=== PATIENT | female | born 1975 | race Hispanic/Latino ===

== ENCOUNTER 2020-09-11 07:05 | Day surgery (SDC) | payer OTHER ==
[2020-09-04 10:28] LABS: BASOPHILS % (AUTO) 0.7 % (0.0-5.0); EOSINOPHILS % (AUTO) 2.3 % (0.0-8.0); HEMATOCRIT 36.5 % (36-48); LYMPHOCYTES % (AUTO) 39.2 % (21.0-51.0); MEAN CORPUSCULAR HEMOGLOBIN 24.9 pg (27.0-33.0); MEAN CORPUSCULAR HGB CONC 30.4 g/dL (32.0-36.0); MEAN CORPUSCULAR VOLUME 81.8 fL (79-99); MONOCYTES % (AUTO) 6.9 % (3.0-13.0); NEUTROPHILS % (AUTO) 50.7 % (40.0-77.0); PLATELET COUNT (AUTO) 344 K/uL (130-400); RED BLOOD CELL COUNT(AUTO) 4.46 MIL/uL (4.00-5.50); WHITE BLOOD COUNT (AUTO) 5.8 K/uL (4.8-10.8)
[2020-09-10 10:24] VITALS: BP 115/76
[2020-09-10] MEDS: METRONIDAZOLE 500MG/100ML BAG 100 ML IVPB SCH (11:30)
[2020-09-10] MEDS: CEFAZOLIN SODIUM 1 GM VIAL IVP SCH (11:30)
[2020-09-11] VITALS (19 sets, daily range): BP systolic 101–134; BP diastolic 51–75
[~2020-09-11] VITALS: Ht 167.6 cm; Wt 94.8 kg
[~2020-09-11 07:05] MED LIST: CELE200 PO; DOCU-116 PO; PHENAZOPYRIDINE HCL 200 MG TABLET PO SCH; TYL3B PO
[2020-09-11 09:10] LABS: ALBUMIN 3.8 g/dL (3.5-5.0); BILIRUBIN,TOTAL 0.4 mg/dL (0.2-1.0); CREATININE 0.7 mg/dL (0.5-1.5); POTASSIUM 3.6 mmol/L (3.5-5.1); TOTAL PROTEIN, SERUM 7.6 g/dL (6.0-8.3)
[2020-09-11] MEDS ORDERED: LACTATED RINGERS 1000ML 1,000 ML IV ONE (09:10)
[2020-09-11] MEDS ORDERED: BUPIVACAINE/PF 0.25% 30ML VIAL IJ ONE (10:36)
[2020-09-11] MEDS ORDERED: NEOSTIGMINE 5MG/5ML SYR IV ONE (10:52)
[2020-09-11] MEDS ORDERED: GLYCOPYRROLATE 1 MG/5 ML SYRINGE ONE (10:52)
[2020-09-11] MEDS ORDERED: SUCCINYLCHOLINE 200MG/10ML SYR ONE (10:52)
[2020-09-11] MEDS ORDERED: MIDAZOLAM HCL 1 MG/ML 2ML VIAL ONE (10:52)
[2020-09-11] MEDS ORDERED: PROPOFOL 10 MG/ML 20ML VIAL IV ONE (10:52)
[2020-09-11] MEDS ORDERED: DEXAMETHASONE SOD PHOSPHATE 4 MG/ML 1ML VIAL ONE (10:52)
[2020-09-11] MEDS ORDERED: ONDANSETRON HCL 4 MG/2 ML VIAL ONE (10:52)
[2020-09-11] MEDS ORDERED: LIDOCAINE PF 2% 5ML ABBOJECT ONE (10:52)
[2020-09-11] MEDS ORDERED: FENTANYL CITRATE PF 50 MCG/1 ML 2ML VIAL ONE ×2 (10:53→12:15)
[2020-09-11] MEDS ORDERED: ROCURONIUM 10MG/1ML SYR 10 MG/ML ML ONE ×2 (10:53→11:59)
[2020-09-11] MEDS: METRONIDAZOLE 500MG/100ML BAG 100 ML IVPB SCH (11:30)
[2020-09-11] MEDS: CEFAZOLIN SODIUM 1 GM VIAL IVP SCH (11:40)
[2020-09-11] MEDS ORDERED: EPHEDRINE SULFATE 50 MG/ML AMPULE ONE (11:46)
[2020-09-11] MEDS ORDERED: MEPERIDINE-PF 25 MG/ML SYG ONE (14:23)
[2020-09-11] MEDS ORDERED: SODIUM CHLORIDE 0.9% 1000ML 1,000 ML IV SCH (15:15)
[2020-09-11] MEDS ORDERED: CELECOXIB 200 MG CAP ONE (15:17)
[2020-09-11] MEDS ORDERED: LORAZEPAM 2 MG/ML 1 ML VIAL IVP PRN (15:30)
[2020-09-11] MEDS ORDERED: MORPHINE SULFATE 10 MG/ML 1ML SYG IM PRN (15:30)
[2020-09-11] MEDS ORDERED: ONDANSETRON HCL 4 MG/2 ML VIAL IVP PRN (15:30)
[2020-09-11] MEDS ORDERED: ACETAMINOPHEN EXTRA STRENGTH 500 MG TABLET PO SCH (16:00)
[2020-09-11] MEDS ORDERED: ACET-66 PO (16:27)
== END 2020-09-11 18:00 | disposition home or self-care (01) ==
LOC: DAH 07:05
PROVIDERS: ATTEND Obstetrics & Gynecology
DX: R10.2 Pelvic and perineal pain (principal); N81.4 Uterovaginal prolapse, unspecified; N92.0 Excessive and frequent menstruation with regular cycle; D25.9 Leiomyoma of uterus, unspecified; Z20.822 Contact with and (suspected) exposure to COVID-19
CPT/HCPCS: 36415 ×2; 58571; 80053; 81025; 85025; 86850; 86900; 86901; A4215 ×2; A4221; A4222; A4223; A4335; A4344; A4600; A4649 ×2; A4663; A4930; A6260; C9803; G0168; J0330; J0690; J1100; J2001; J2175; J2250; J2405; J2704; J2710; J3010 ×2; J3490 ×5; J7030; J7120 ×2; S2900; U0003